=== PATIENT | female | born 1965 | race Asian ===

== ENCOUNTER 2017-05-27 11:51 | Emergency (ER) | payer OTHER ==
[2017-05-27 12:00] VITALS: BP 128/72; PULSE 59; TEMP 97.8; BMI 22.1
--- NOTE | 2017-05-27 14:32 | PDOC ---
History of Present Illness - General Chief Complaint: Injury Stated Complaint: SWOLLEN RT HAND Time Seen by Provider: 05/27/17 13:34 History Source: Patient Exam Limitations: No Limitations - History of Present Illness Initial Comments: 05/27/17 14:36 My chief complaint: Right hand pain , left middle finger pain fall 2 weeks ago History of present illness: Patient is a 52-year-old female with no significant medical history here today due to patient falling when she was holding on bag's with her best clenched 2 weeks ago. Patient reports that she has pain over her right second and third metacarpal joint. And on her left middle finger. Patient is right hand dominant. Patient denies hitting her head. Patient reports that right hand pain currently as a 7 out of 10. And left middle finger is a 5 out of 10 aching in nature. Patient does not want anything for pain currently. Occurred: reports: other (2 weeks ago ) Severity: reports: mild (rt. middle finger), moderate (rt. hand 2nd & 3rd mcp jt ) Pain Location: reports: upper extremity (rt. 2nd & 3rd mcp jt, left 3rd finger) Method of Injury: Yes: fall Modifying Factors: improves with: None Loss of Consciousness: no loss of consciousness Past History - Past Medical History Allergies/Adverse Reactions: Allergies Allergy/AdvReac Type Severity Reaction Status Date / Time No Known Allergies Allergy Verified 05/27/17 11:56 Home Medications: Ambulatory Orders No Home Medications 0 dose .ROUTE UTDICT 03/30/13 COPD: No - Suicide/Smoking/Psychosocial Hx Smoking Status: No Smoking History: Never smoked Have you smoked in the past 12 months: No Number of Cigarettes Smoked Daily: 0 Information on smoking cessation initiated: No Hx Alcohol Use: No Drug/Substance Use Hx: No Substance Use Type: None Review of Systems - Review of Systems Able to Perform ROS?: Yes Constitutional: No: Symptoms Reported HEENTM: No: Symptoms Reported Respiratory: No: Symptoms reported Cardiac (ROS): No: Symptoms Reported ABD/GI: No: Symptoms Reported : No: Symptoms Reported Musculoskeletal: Yes: Joint Pain (rt. hand pain 2nd & 3rd mcp jts, left middle finger paijn ), Joint Swelling (rt. 2nd mcp jt ) Integumentary: No: Symptoms Reported Neurological: No: Symptoms reported *Physical Exam - Vital Signs Last Vital Signs Temp Pulse Resp BP Pulse Ox 97.8 F 59 L 18 128/72 100 05/27/17 11:57 05/27/17 11:57 05/27/17 11:57 05/27/17 11:57 05/27/17 11:57 - Physical Exam General Appearance: Yes: Appropriately Dressed Comments:: 05/27/17 14:42 radial pulse 4 + b/l Musculoskeletal: positive: Normal Inspection, Vertebral Tenderness. negative: CVA Tenderness, CVA Tenderness (R), CVA Tenderness (L), Decreased Range of Motion Extremity: positive: Normal Capillary Refill, Normal Range of Motion (b/l wrist , elbows, shoulders, b/l digits each hand ), Tender (rt. 2nd 3rd mcp jt , left middle finger), Swelling (rt. 2nd mcp jt ). negative: Normal Inspection (right hand ) Integumentary: positive: Swelling (rt. 2nd mcp jt ) Neurologic: positive: Normal Response, Respond to painful stimul (b/l hands, wrist, forearms ), Responsive. negative: Numbness, Sensory Deficit (b/l hands, forearm,) Procedures - Consent Consent obtained: Verbal, From Patient - Splinting Splint Location: Right: Finger (middle, rt thumb ) Pre-Proc Neuro Vasc Exam: normal Hand-Made Type: orthoglass (rt. thumb spica) Splint Type: Yes: Thumb Spica (rt. thumb ), Finger (left middle ) Post-Proc Neuro Vasc Exam: normal Leo Bandage: yes (rt. thumb spica), 2" Complications: No Medical Decision Making - Medical Decision Making 05/27/17 14:38 Patient is a 52-year-old female with no significant medical history here today due to patient falling when she was holding on bag's with her best clenched 2 weeks ago. Patient reports that she has pain over her right second and third metacarpal joint. And on her left middle finger. Patient is right hand dominant. Patient denies hitting her head. Patient reports that right hand pain currently as a 7 out of 10. And left middle finger is a 5 out of 10 aching in nature. Patient does not want anything for pain currently. fall Rt. hand mcp jt 2nd & 3rd mcp jt r/o fracture left middle finger r/o fracture PLAN: xray rt. hand minimally displaced rt. middle ph[place] base xray left hand tuft of thumb non displaced fracture thumb spica orthoglass splint applied rt left middle finger splint applied ortho follow up need 05/27/17 15:43 *DC/Admit/Observation/Transfer Diagnosis at time of Disposition: Finger fracture, left Qualifiers: Encounter type: initial encounter Finger: middle finger Fracture type: closed Phalanx: middle Fracture alignment: displaced Qualified Code(s): S62.623A - Displaced fracture of middle phalanx of left middle finger, initial encounter for closed fracture Fall Qualifiers: Encounter type: initial encounter Qualified Code(s): W19.XXXA - Unspecified fall, initial encounter Fracture of thumb Qualifiers: Encounter type: initial encounter Phalanx: distal Fracture alignment: nondisplaced Laterality: right Diagnosis at time of Disposition: (Ruled Out): Finger fracture, right, Fracture of thumb, closed - Discharge Dispostion Disposition: HOME Condition at time of disposition: Stable - Referrals Referrals: Walker Campos MD [Primary Care Provider] - Kalyan Slaughter MD [Staff Physician] - - Patient Instructions Additional Instructions: Keep orthoglass splint on right hand and splint on rt. middle finger Follow up with orthopedist tomorrow Take ibuprofen as needed as directed by sheet metal foreman Return to emergency room if any new symptoms develop any numbness of hands or fingers Patient voiced understanding of discharge instructions and all questions were answered - Post Discharge Activity Forms/Work/School Notes: Back to Work
== END 2017-05-27 16:04 | disposition home or self-care (01) ==
LOC: JERFT 11:51
PROC: 2W3KX1Z Immobilization of Left Finger using Splint (ICD-10-PCS; principal; 2017-05-27)
PROC: 2W3CX1Z Immobilization of Right Lower Arm using Splint (ICD-10-PCS; 2017-05-27)
DX: S62.524A Nondisplaced fracture of distal phalanx of right thumb, initial encounter for closed fracture (principal); S62.623A Displaced fracture of middle phalanx of left middle finger, initial encounter for closed fracture; W18.39XA Other fall on same level, initial encounter; Y93.89 Activity, other specified; Y92.89 Other specified places as the place of occurrence of the external cause
CPT/HCPCS: 73130-TC-LT; 73130-TC-RT; 99282-25

== ENCOUNTER 2020-07-21 11:14 | Emergency (ER) | payer OTHER ==
[2020-07-21 11:19] VITALS: BP 146/77; PULSE 69; TEMP 98.5; BMI 23.1
[2020-07-21] MEDS ORDERED: diazePAM 5 MG TABLET PO ONE (11:35)
[2020-07-21] MEDS ORDERED: diazePAM 2 MG TABLET PO ONE (11:36)
[2020-07-21] MEDS ORDERED: diazePAM 2 MG TABLET ONE (11:36)
== END 2020-07-21 14:15 | disposition home or self-care (01) ==
LOC: FER 11:14
DX: S39.012A Strain of muscle, fascia and tendon of lower back, initial encounter (principal)
CPT/HCPCS: 99284-25

== ENCOUNTER 2025-03-17 06:33 | Day surgery (SDC) | payer OTHER ==
[2025-03-09 09:33] VITALS: BMI 20.5
[2025-03-17 07:59] VITALS: TEMP 97.4
[2025-03-17 08:29] VITALS: BP 128/62; PULSE 60; RESP 16
== END 2025-03-17 08:46 | disposition home or self-care (01) ==
LOC: JASU-ENDO 06:33
PROVIDERS: ATTEND Internal Medicine Gastroenterology
PROC: 0DB68ZX Excision of Stomach, Via Natural or Artificial Opening Endoscopic, Diagnostic (ICD-10-PCS; 2025-03-17)
PROC: 0DB78ZX Excision of Stomach, Pylorus, Via Natural or Artificial Opening Endoscopic, Diagnostic (ICD-10-PCS; 2025-03-17)
PROC: 0DJD8ZZ Inspection of Lower Intestinal Tract, Via Natural or Artificial Opening Endoscopic (ICD-10-PCS; principal; 2025-03-17 07:30)
DX: Z12.11 Encounter for screening for malignant neoplasm of colon (principal); R10.13 Epigastric pain
CPT/HCPCS: 88305-TC; 88342-TC